=== PATIENT | female | born 1970 | race Caucasian/White ===

== ENCOUNTER → 2022-05-04 10:21 | Outpatient (BNVA) | payer OTHER, SELFPAY | PROVIDERS: PCP Family Medicine; Referring Provider Family Medicine; Visit Provider Internal Medicine | DX: M54.50 Low back pain, unspecified (principal); G62.9 Polyneuropathy, unspecified; R79.82 Elevated C-reactive protein (CRP); M25.50 Pain in unspecified joint; M79.7 Fibromyalgia | CPT/HCPCS: 72100; 72202; 73120; 73620 ==

== ENCOUNTER → 2025-07-03 13:34 | Outpatient (BNVA) | payer BC, SELFPAY | PROVIDERS: PCP Family Medicine; Visit Provider Podiatrist Foot & Ankle Surgery | DX: M79.671 Pain in right foot (principal); M79.672 Pain in left foot; M72.2 Plantar fascial fibromatosis; M20.41 Other hammer toe(s) (acquired), right foot; M20.42 Other hammer toe(s) (acquired), left foot | CPT/HCPCS: 73630 ==